=== PATIENT | male | born 1960 | race Caucasian/White ===

== ENCOUNTER 2020-12-07 16:15 | Emergency (ER) | payer BC ==
[~2020-12-07] VITALS: Ht 182.9 cm; Wt 92.7 kg
[2020-12-07] MEDS ORDERED: IV NORMAL SALINE 1000ML BAG 1,000 ML IV ONE ×2 (16:30)
--- NOTE | 2020-12-07 16:35 | PHYS DOC ---
Past Medical History Past Medical History: Hypertension Past Medical History hld Past Surgical History wrist surgery Smoking Status: Never Smoker Alcohol Use: None Drug Use: None General Adult EDM: Chief Complaint: diarhea and abd pain HPI: HPI: This is a pleasant 60-year-old male presenting to the emergency department today with abdominal pain and diarrhea. His diarrhea started this weekend on Saturday evening worsened on Saturday and then began improving of the past 48 hours. He has had intermittent cramping of the abdomen which comes and goes and spasm time periods which alleviates spontaneously. He denies any blood in his stools. He called his nurse who sent him to the emergency department for concerns of dehydration because he was having cramping of his muscles. Review of systems negative for chest pain shortness of breath fevers chills or rash. Positive for 1 episode of nonbilious nonbloody emesis. All other review of systems negative. ED course: 60-year-old male presenting with abdominal pain and diarrhea. Patient was initially tachycardic here in the emergency department. Patient was given IV fluids. Blood work shows leukocytosis. CT is unrevealing. Patient has finished about 700 cc of fluid. We will give the patient another 1300. The patient was signed out to oncoming provider with preliminary plans of discharge. Patient was then signed out to oncoming provider for final disposition. Review of Systems: Review of Systems: Constitutional: Denies fever or chills. [] Eyes: Denies change in visual acuity. [] HENT: Denies nasal congestion or sore throat. [] Respiratory: Denies cough or shortness of breath. [] Cardiovascular: Denies chest pain or edema. [] GI: per hpi : Denies dysuria. [] Musculoskeletal: Denies back pain or joint pain. [] Integument: Denies rash. [] Neurologic: Denies headache, focal weakness or sensory changes. [] Endocrine: Denies polyuria or polydipsia. [] Lymphatic: Denies swollen glands. [] Psychiatric: Denies depression or anxiety. [] Heart Score: Risk Factors: Risk Factors: DM, Current or recent (<one month) smoker, HTN, HLP, family history of CAD, obesity. Risk Scores: Score 0 - 3: 2.5% MACE over next 6 weeks - Discharge Home Score 4 - 6: 20.3% MACE over next 6 weeks - Admit for Clinical Observation Score 7 - 10: 72.7% MACE over next 6 weeks - Early Invasive Strategies Current Medications: Current Medications Medications (Trade) Dose Ordered Sig/Juan Start Time Stop Time Status Last Admin Dose Admin Sodium Chloride 1,000 ml @ 1,000 mls/hr 1X ONCE 12/07/20 16:30 12/07/20 17:29 UNV Physical Exam: PE: Constitutional: Well developed, well nourished, no acute distress, non-toxic appearance. [] HENT: Normocephalic, atraumatic, bilateral external ears normal, oropharynx moist, no oral exudates, nose normal. [] Eyes: PERRLA, EOMI, conjunctiva normal, no discharge. [] Neck: Normal range of motion, no tenderness, supple, no stridor. [] Cardiovascular:Heart rate regular rhythm, no murmur [] Lungs & Thorax: Bilateral breath sounds clear to auscultation [] Abdomen: Bowel sounds normal, soft, no tenderness, no masses, no pulsatile masses. No rebound tenderness or guarding. Negative McBurney's point. Negative Pathak sign. Hyper active bowel sounds. Skin: Warm, dry, no erythema, no rash. [] Back: No tenderness, no CVA tenderness. [] Extremities: No tenderness, no cyanosis, no clubbing, ROM intact, no edema. [] Neurologic: Alert and oriented X 3, normal motor function, normal sensory function, no focal deficits noted. [] Psychologic: Affect normal, judgement normal, mood normal. [] EKG: EKG: [] Radiology/Procedures: Radiology/Procedures: [] Course & Med Decision Making: Course & Med Decision Making Pertinent Labs and Imaging studies reviewed. (See chart for details) [] Dragon Disclaimer: Dragon Disclaimer: This electronic medical record was generated, in whole or in part, using a voice recognition dictation system. Departure Departure Impression: Primary Impression: Abdominal pain Additional Impressions: Diarrhea Dehydration MAYANK ANDERSON MD Dec 07, 2020 16:35
[2020-12-07 16:48] LABS: BASO % 0 % (0-3); EOS % 0 % (0-3); HEMOGLOBIN 16.6 g/dL (13.0-17.5); LYMPH # 0.5 x10^3/uL (1.0-4.8); LYMPH % 3 % (24-48); MEAN CORPUSCULAR HEMOGLOBIN 31 pg (25-35); MEAN CORPUSCULAR HGB CONC 35 g/dL (31-37); MEAN CORPUSCULAR VOLUME 91 fL (79-100); MONO # 1.4 x10^3/uL (0.0-1.1); MONO % 7 % (0-9); NEUT # 17.4 x10^3/uL (1.8-7.7); NEUT % 90 % (31-73); PLATELET COUNT 314 x10^3/uL (140-400); RED BLOOD COUNT 5.28 x10^6/uL (4.30-5.70); RED CELL DISTRIBUTION WIDTH 12.7 % (11.5-14.5); WHITE BLOOD COUNT 19.4 x10^3/uL (4.0-11.0)
[2020-12-07 16:58] LABS: CALCIUM 9.2 mg/dL (8.5-10.1); CREATININE 1.4 mg/dL (0.7-1.3); GFR 51.7; POTASSIUM 3.5 mmol/L (3.5-5.1)
--- NOTE | 2020-12-07 17:02 | EKG ---
[facility] [address] [place] [id number] Test Date: 2020-12-07 Test Time: 16:58:52 Pat Name: JULIAN MORE Department: Room: Gender: M [employer]: : [id number] Requested By: MAYANK ANDERSON Order Number: [id number] Reading MD: Measurements Intervals [place] Rate: 117 P: 17 HI: 142 QRS: -8 QRSD: 88 T: 30 QT: 294 QTc: 414 Interpretive Statements SINUS TACHYCARDIA LEFTWARD AXIS OTHERWISE NORMAL ECG RI6.01 No previous ECG available for comparison
[2020-12-07 17:04] LABS: ALBUMIN 3.9 g/dL (3.4-5.0); DIRECT BILIRUBIN 0.3 mg/dL (0.0-0.2); TOTAL BILIRUBIN 1.1 mg/dL (0.2-1.0)
[2020-12-07 17:08] LABS: % EOS 2 % (0-5); % LYMPHS 3 % (24-48); % MONOS 5 % (0-10); % SEGS 90 % (35-66); PLT ESTIMATE ADEQUATE (ADEQUATE)
[2020-12-07] MEDS ORDERED: IOHEXOL 300 MG/ML 100ML VIAL. IV ONE (17:15)
[2020-12-07] MEDS ORDERED: CONTRAST GIVEN. MC PRN (17:15)
--- NOTE | 2020-12-07 17:59 | RAD ---
Exam: CT of abdomen and pelvis with contrast INDICATION: Abdominal pain and diarrhea TECHNIQUE: Sequential axial images through the abdomen and pelvis obtained following the administrati on of 75 mL of Omni 300 IV contrast. Sagittal and coronal reformatted images were reconstructed from the axial data and reviewed. Comparisons: None FINDINGS: Heart size is normal. No pericardial effusion. Visualized lung bases are clear. No pleural effusion. Liver, spleen, pancreas and adrenals are unremarkable. Gallstones and within the gallbladder. No perinephric inflammation or hydronephrosis. No renal or ureteral calculi are identified. Bladder is decompressed not well evaluated. Prostate is not enlarged. Scattered diverticula noted within the sigmoid colon without evidence of acute diverticulitis. Mild w all thickening noted at the sigmoid colon. Remainder of the large and small bowel are unremarkable. A ppendix is normal. No free intra-abdominal air or fluid. No obstruction. Abdominal aorta has a normal course and caliber. Abdominal vasculature is patent. No enlarged abdominal lymph nodes are identified. No suspicious osseous lesions or acute fractures. IMPRESSION: 1. Short segment of wall thickening at the sigmoid colon may relate to colitis. 2. Cholelithiasis 3. Diverticulosis without evidence of acute diverticulitis. Exposure: One or more of the following in the visualized dose reduction techniques were utilized for this examination: 1. Automated exposure control 2. Adjustment of the MA and/or KV according to patient size 3. Use of iterative of reconstructive technique Electronically signed by: Morgan Fung MD (12/07/2020 5:56 PM) [facility]
[2020-12-07 19:07] LABS: BILIRUBIN,URINE NEGATIVE (NEG); CLARITY,URINE CLEAR; COLOR,URINE YELLOW; NITRITE,URINE NEGATIVE (NEG); PH,URINE 5.5 (<5.0-8.0); PROTEIN,URINE NEGATIVE (NEG-TRACE); UROBILINOGEN,URINE 0.2 mg/dL (0.2 mg/dL)
[2020-12-07 19:16] LABS: BACTERIA,URINE 0 /HPF (0-FEW); GRANULAR CASTS,URINE FEW /HPF; RBC,URINE 0 /HPF (0-2); WBC,URINE 0 /HPF (0-4)
[2020-12-07 21:19] VITALS: BP 127/65
[2020-12-07] MEDS ORDERED: ONDA4TAB7 PO (23:03)
[2020-12-07] MEDS ORDERED: CIPR500T2 PO (23:03)
[2020-12-07] MEDS ORDERED: TRAM-48 PO (23:03)
[2020-12-07] MEDS ORDERED: METR500T PO (23:03)
== END 2020-12-07 23:34 | disposition home or self-care (01) ==
LOC: ER 16:15
DX: R10.9 Unspecified abdominal pain (principal); R19.7 Diarrhea, unspecified; E86.0 Dehydration; I10 Essential (primary) hypertension; E78.5 Hyperlipidemia, unspecified
CPT/HCPCS: 36415; 74177; 80048; 80076; 81001; 83690; 83880; 84484; 85007; 85025; 93005; 96360; 96361; 99285; J7030; Q9967